=== PATIENT | male | born 1950 | race Caucasian/White ===

== ENCOUNTER 2022-02-24 09:24 | Emergency (ER) | payer OTHER, MEDICARE ==
[~2022-02-24] VITALS: Ht 177.8 cm; Wt 105.0 kg
[2022-02-24] MEDS ORDERED: LIPITOR40 MG PO (10:06)
[2022-02-24] MEDS ORDERED: ALLOPURINOL100 MG PO (10:06)
[2022-02-24] MEDS ORDERED: CALCITRIOL0.25 MCG PO (10:07)
[2022-02-24] MEDS ORDERED: CETIRIZINE HCL5 MG PO (10:08)
[2022-02-24] MEDS ORDERED: FERROUS SULFAT325 M2 PO (10:09)
[2022-02-24] MEDS ORDERED: TORSEMIDE10 MG PO (10:09)
[2022-02-24] MEDS ORDERED: ELIQUIS5 MG PO (10:10)
[2022-02-24] MEDS ORDERED: FLUTICASONE PRO16 GM NAS (10:11)
[2022-02-24] MEDS ORDERED: TOPROL XL100 MG PO (10:12)
[2022-02-24] MEDS ORDERED: ZOSYN 2.252.25 GM/51 IV (10:13)
[2022-02-24] MEDS ORDERED: TYLENOL325 MG PO (10:14)
[2022-02-24] MEDS ORDERED: DULCOLAX10 MG PR (10:15)
[2022-02-24] MEDS ORDERED: MELATONIN3 M3 PO (10:16)
[2022-02-24] MEDS ORDERED: SIMETHICONE80 MG PO (10:16)
[2022-02-24] MEDS ORDERED: MIRALAX17 GM PO (10:17)
[2022-02-24] MEDS ORDERED: ULTRAM50 MG PO (10:18)
[2022-02-24] MEDS ORDERED: VANCOMYCIN1 GM/2002 (10:19)
[2022-02-24] MEDS ORDERED: VENTOLIN HFA18 GM INH (10:20)
[2022-02-24] MEDS ORDERED: ONDANSETRON ODT8 MG PO (10:21)
== END 2022-02-24 16:27 | disposition short-term general hospital (02) ==
LOC: ED 09:24
DX: N17.9 Acute kidney failure, unspecified (principal); D64.9 Anemia, unspecified; Z79.899 Other long term (current) drug therapy
CPT/HCPCS: 36415; 51702; 71045; 80053; 81001; 83880; 85025; 87088; 99285-25; C9803; J0696; J1940; J2405; J7030; U0003